=== PATIENT | male | born 1960 | race African-American/Black ===

== ENCOUNTER 2020-03-02 16:58 | Emergency (ER) | payer OTHER ==
[~2020-03-02] VITALS: Ht 190.5 cm; Wt 129.3 kg
[2020-03-02] MEDS ORDERED: NORFLEX100 MG PO (18:45)
[2020-03-02] MEDS ORDERED: NAPROSYN500 MG PO (18:45)
[2020-03-02 18:59] VITALS: BP 168/90
== END 2020-03-02 19:00 | disposition home or self-care (01) ==
LOC: ER 16:58
DX: S16.1XXA Strain of muscle, fascia and tendon at neck level, initial encounter (principal); S29.012A Strain of muscle and tendon of back wall of thorax, initial encounter; M25.512 Pain in left shoulder; F17.210 Nicotine dependence, cigarettes, uncomplicated; V89.2XXA Person injured in unspecified motor-vehicle accident, traffic, initial encounter; Y93.89 Activity, other specified; Y92.89 Other specified places as the place of occurrence of the external cause; Y99.8 Other external cause status